=== PATIENT | male | born 1945 | race Caucasian/White ===

== ENCOUNTER 2017-04-08 14:54 | Emergency (ER) | payer OTHER, BC ==
[~2017-04-08] VITALS: Ht 180.3 cm; Wt 88.9 kg
[~2017-04-08 14:54] MED LIST: ARTHROTEC 751 TABLET PO; ASPIRIN325 MG PO; CLARITIN10 MG PO; CYCLOBENZAPRINE10 MG PO; ENDOCET 5-3251 EACH PO; LIBRAX, CLI1 CAPSULE PO; LIPITOR40 MG PO; LOPRESSOR25 MG PO; PHENOBARBITAL64.8 MG PO; PRILOSEC20 MG PO; PRINIVIL5 MG PO; SENNA-TIME S T1 EACH PO; SERTRALINE HCL50 MG PO; TYLENOL EXTRA500 MG PO; ZOLOFT100 MG PO
[2017-04-08] MEDS ORDERED: TYLENOL REGULA325 MG PO (16:29)
[2017-04-08 16:45] VITALS: BP 155/74
== END 2017-04-08 16:46 | disposition home or self-care (01) ==
LOC: EME 14:54
DX: S00.81XA Abrasion of other part of head, initial encounter (principal); S00.83XA Contusion of other part of head, initial encounter; W18.39XA Other fall on same level, initial encounter; I11.0 Hypertensive heart disease with heart failure; I50.9 Heart failure, unspecified; I10 Essential (primary) hypertension; E78.5 Hyperlipidemia, unspecified; K21.9 Gastro-esophageal reflux disease without esophagitis; Z87.891 Personal history of nicotine dependence; Z95.1 Presence of aortocoronary bypass graft; Z88.0 Allergy status to penicillin
CPT/HCPCS: 70450; 70486; 72125; 93005; 99281; 99283

== ENCOUNTER 2017-09-20 12:11 | Emergency (ER) | payer OTHER, BC ==
[~2017-09-20] VITALS: Ht 180.3 cm; Wt 98.8 kg
[~2017-09-20 12:11] MED LIST changes: +TYLENOL REGULA325 MG PO
[2017-09-20] MEDS ORDERED: KEFLEX500 MG PO (15:51)
[2017-09-20 16:04] VITALS: BP 159/76
== END 2017-09-20 16:17 | disposition home or self-care (01) ==
LOC: EME 12:11
DX: L03.115 Cellulitis of right lower limb (principal); I10 Essential (primary) hypertension; E78.5 Hyperlipidemia, unspecified; K21.9 Gastro-esophageal reflux disease without esophagitis; Z87.891 Personal history of nicotine dependence; Z95.1 Presence of aortocoronary bypass graft; Z90.49 Acquired absence of other specified parts of digestive tract; Z85.9 Personal history of malignant neoplasm, unspecified; Z87.442 Personal history of urinary calculi; Z88.2 Allergy status to sulfonamides; Z88.0 Allergy status to penicillin
CPT/HCPCS: 93971; 99281; 99284

== ENCOUNTER 2017-09-24 16:45 | Inpatient (IN) | payer OTHER, BC ==
[~2017-09-24] VITALS: Ht 180.3 cm; Wt 94.2 kg
[~2017-09-24 16:45] MED LIST changes: +KEFLEX500 MG PO
[2017-09-24 20:54] LABS: BASOPHIL COUNT 0.1 K/uL (0-0.1); EOSINOPHIL (%) 9.8 % (0-5); EOSINOPHIL COUNT 0.6 K/uL (0-0.3); HEMATOCRIT 40.1 % (38.0-50.0); HEMOGLOBIN 13.4 G/DL (12.5-16.6); IMMATURE GRANULOCYTE (%) 0.3 % (0.0-0.7); LYMPHOCYTE (%) 21.6 % (15-42); LYMPHOCYTE COUNT 1.3 K/uL (1.0-2.8); MCH 30.7 PG (29.0-34.0); MCHC 33.4 G/DL (30.0-36.0); MONOCYTE COUNT 0.6 K/uL (0-0.8); NEUTROPHIL (%) 58.3 % (45-76); NEUTROPHIL COUNT 3.6 K/uL (1.8-6.4); PLATELET COUNT 169 K/uL (156-360); RBC DIS.WIDTH-CV 12.5 % (11.8-14.6); RBC DIS.WIDTH-SD 42.3 % (39-53); RED BLOOD COUNT 4.36 M/uL (4.00-5.50); WHITE BLOOD COUNT 6.2 K/uL (4.1-10.2)
[2017-09-24 21:10] LABS: CHLORIDE 104 mEq/L (99-109); POTASSIUM 4.1 mEq/L (3.7-5.4); SODIUM 140 mEq/L (136-147)
[2017-09-24 21:12] LABS: GLUCOSE 109 mg/dL (70-99)
[2017-09-24 21:16] LABS: CREATININE 1.1 mg/dL (0.6-1.3); GFR ESTIMATE (CALCULATED) > 59 mL/min/ (58.99-99999)
[2017-09-24 21:17] LABS: UREA NITROGEN (BUN) 17 mg/dL (9-23)
[2017-09-24] MEDS ORDERED: TRAMADOL HCL50 MG PO (23:00)
[2017-09-24] MEDS ORDERED: ATORVASTATIN CA40 MG PO (23:00)
[2017-09-24] MEDS ORDERED: LOSARTAN POTAS100 MG PO (23:01)
[2017-09-24] MEDS ORDERED: MELOXICAM7.5 MG PO (23:01)
[2017-09-24] MEDS ORDERED: GABAPENTIN100 MG PO (23:02)
[2017-09-24] MEDS ORDERED: SERTRALINE HCL100 MG PO (23:03)
[2017-09-24] MEDS ORDERED: PRIMIDONE50 MG PO (23:03)
[2017-09-24] MEDS ORDERED: OMEPRAZOLE20 MG PO (23:05)
[2017-09-24] MEDS ORDERED: INDOCIN50 MG PO (23:12)
[2017-09-25 01:53] VITALS: BP 160/80
[2017-09-25 03:55] VITALS: BP 138/65
[2017-09-25 05:59] LABS: BASOPHIL (%) 0.7 % (0-1); BASOPHIL COUNT 0.1 K/uL (0-0.1); EOSINOPHIL (%) 9.5 % (0-5); EOSINOPHIL COUNT 0.7 K/uL (0-0.3); HEMOGLOBIN 12.1 G/DL (12.5-16.6); IMMATURE GRANULOCYTE (%) 0.3 % (0.0-0.7); LYMPHOCYTE (%) 18.6 % (15-42); LYMPHOCYTE COUNT 1.3 K/uL (1.0-2.8); MCH 30.7 PG (29.0-34.0); MCHC 33.6 G/DL (30.0-36.0); MCV 91.4 FL (86-99); MONOCYTE (%) 10.2 % (3-12); MONOCYTE COUNT 0.7 K/uL (0-0.8); NEUTROPHIL (%) 60.7 % (45-76); NEUTROPHIL COUNT 4.3 K/uL (1.8-6.4); PLATELET COUNT 145 K/uL (156-360); RBC DIS.WIDTH-CV 12.5 % (11.8-14.6); RBC DIS.WIDTH-SD 41.4 % (39-53); RED BLOOD COUNT 3.94 M/uL (4.00-5.50)
[2017-09-25 06:15] LABS: CHLORIDE 107 MEQ/L (99-109); CREATININE 1.1 MG/DL (0.6-1.3); GFR ESTIMATE (CALCULATED) > 59 mL/min/ (58.99-99999); GLUCOSE 118 mg/dL (70-99); POTASSIUM 4.3 MEQ/L (3.7-5.4); SODIUM 143 MEQ/L (136-147); UREA NITROGEN (BUN) 16 mg/dL (9-23)
[2017-09-25 08:37] VITALS: BP 139/69
[2017-09-25 16:00] VITALS: BP 124/71
[2017-09-25 23:57] VITALS: BP 159/73
[2017-09-26 05:41] LABS: HEMATOCRIT 39.6 % (38.0-50.0); HEMOGLOBIN 13.1 G/DL (12.5-16.6); MCH 29.9 PG (29.0-34.0); MCHC 33.1 G/DL (30.0-36.0); MCV 90.4 FL (86-99); PLATELET COUNT 156 K/uL (156-360); RBC DIS.WIDTH-CV 12.3 % (11.8-14.6); RBC DIS.WIDTH-SD 40.5 % (39-53); RED BLOOD COUNT 4.38 M/uL (4.00-5.50); WHITE BLOOD COUNT 7.3 K/uL (4.1-10.2)
[2017-09-26 07:00] VITALS: BP 161/77
[2017-09-26 10:29] LABS: HEMOGLOBIN A1c (GLYCOHEMOGLOB) 6.8 % (Below 5.7)
[2017-09-26 16:10] VITALS: BP 139/78
[2017-09-27 04:00] VITALS: BP 169/76
[2017-09-27 07:48] VITALS: BP 157/80
[2017-09-27 09:04] LABS: BASOPHIL (%) 0.3 % (0-1); EOSINOPHIL (%) 0.7 % (0-5); EOSINOPHIL COUNT 0.1 K/uL (0-0.3); HEMATOCRIT 38.7 % (38.0-50.0); HEMOGLOBIN 12.7 G/DL (12.5-16.6); IMMATURE GRANULOCYTE (%) 0.5 % (0.0-0.7); LYMPHOCYTE (%) 11.3 % (15-42); LYMPHOCYTE COUNT 1.3 K/uL (1.0-2.8); MCH 29.5 PG (29.0-34.0); MCHC 32.8 G/DL (30.0-36.0); MCV 89.8 FL (86-99); MONOCYTE COUNT 0.8 K/uL (0-0.8); NEUTROPHIL (%) 80.2 % (45-76); NEUTROPHIL COUNT 9.4 K/uL (1.8-6.4); PLATELET COUNT 178 K/uL (156-360); RBC DIS.WIDTH-CV 12.4 % (11.8-14.6); RBC DIS.WIDTH-SD 40.8 % (39-53); RED BLOOD COUNT 4.31 M/uL (4.00-5.50); WHITE BLOOD COUNT 11.8 K/uL (4.1-10.2)
[2017-09-27] MEDS ORDERED: TRIAMCINOLONE A15 GM TP (11:12)
[2017-09-27] MEDS ORDERED: PREDNISONE20 MG PO (11:12)
== END 2017-09-27 13:10 | disposition home or self-care (01) | DRG 603 ==
LOC: EME 16:45 → 5EAST 23:39 → EDOF 23:39 → ENRESERV 23:42 → 5EAST 09-25 01:14 → ENPENDDIS 09-27 → 5EAST 09-27 13:10
PROVIDERS: Emergency Medicine; Hospitalist; Internal Medicine
DX: L03.116 Cellulitis of left lower limb (principal); D72.1 Eosinophilia; L03.115 Cellulitis of right lower limb; I25.10 Atherosclerotic heart disease of native coronary artery without angina pectoris; E11.9 Type 2 diabetes mellitus without complications; I50.9 Heart failure, unspecified; I11.0 Hypertensive heart disease with heart failure; M48.02 Spinal stenosis, cervical region; K21.9 Gastro-esophageal reflux disease without esophagitis; E78.5 Hyperlipidemia, unspecified; M19.90 Unspecified osteoarthritis, unspecified site; F32.9 Major depressive disorder, single episode, unspecified; Z96.651 Presence of right artificial knee joint; Z95.1 Presence of aortocoronary bypass graft; Z87.891 Personal history of nicotine dependence; Z87.442 Personal history of urinary calculi; Z83.3 Family history of diabetes mellitus; Z82.49 Family history of ischemic heart disease and other diseases of the circulatory system; Z80.8 Family history of malignant neoplasm of other organs or systems; Z79.4 Long term (current) use of insulin
CPT/HCPCS: 71046; 80048; 80202; 82948; 83036; 83605; 83880; 85025; 85027; 87040; 87641; 93005; 99281; 99285; J0690; J1650; J1815; J3370; J7512

== ENCOUNTER 2018-02-08 01:32 | Emergency (ER) | payer OTHER, BC ==
[~2018-02-08] VITALS: Ht 177.8 cm; Wt 89.0 kg
[~2018-02-08 01:32] MED LIST changes: +ATORVASTATIN CA40 MG PO; +GABAPENTIN100 MG PO; +INDOCIN50 MG PO; +LOSARTAN POTAS100 MG PO; +MELOXICAM7.5 MG PO; +OMEPRAZOLE20 MG PO; +PREDNISONE20 MG PO; +PRIMIDONE50 MG PO; +SERTRALINE HCL100 MG PO; +TRAMADOL HCL50 MG PO; +TRIAMCINOLONE A15 GM TP
[2018-02-08 02:46] LABS: BASOPHIL (%) 0.7 % (0-1); BASOPHIL COUNT 0.1 K/uL (0-0.1); EOSINOPHIL (%) 4.5 % (0-5); EOSINOPHIL COUNT 0.3 K/uL (0-0.3); HEMATOCRIT 39.1 % (38.0-50.0); HEMOGLOBIN 13.2 G/DL (12.5-16.6); IMMATURE GRANULOCYTE (%) 0.6 % (0.0-0.7); LYMPHOCYTE (%) 15.5 % (15-42); LYMPHOCYTE COUNT 1.1 K/uL (1.0-2.8); MCH 30.9 PG (29.0-34.0); MCHC 33.8 G/DL (30.0-36.0); MCV 91.6 FL (86-99); MONOCYTE (%) 7.7 % (3-12); MONOCYTE COUNT 0.5 K/uL (0-0.8); NEUTROPHIL COUNT 4.9 K/uL (1.8-6.4); PLATELET COUNT 135 K/uL (156-360); RBC DIS.WIDTH-CV 12.7 % (11.8-14.6); RBC DIS.WIDTH-SD 42.3 % (39-53); RED BLOOD COUNT 4.27 M/uL (4.00-5.50); WHITE BLOOD COUNT 6.9 K/uL (4.1-10.2)
[2018-02-08 03:02] LABS: AMYLASE 53 IU/L (1-118); CHLORIDE 105 mEq/L (99-109); POTASSIUM 4.5 mEq/L (3.7-5.4); SODIUM 141 mEq/L (136-147)
[2018-02-08 03:04] LABS: GLUCOSE 221 mg/dL (70-99)
[2018-02-08 03:07] LABS: SERUM ETHYL ALCOHOL < 10 mg/dL
[2018-02-08 03:08] LABS: CREATININE 1.3 mg/dL (0.6-1.3); GFR ESTIMATE (CALCULATED) 58 mL/min/ (58.99-99999)
[2018-02-08 03:09] LABS: UREA NITROGEN (BUN) 23 mg/dL (9-23)
[2018-02-08 03:10] LABS: TROP-I INTERPRETATION NEGATIVE; TROPONIN-I < 0.01 ng/mL (0.0-0.30)
[2018-02-08 04:25] LABS: APPEARANCE CLEAR ((CLEAR)); BILIRUBIN NEGATIVE; BLOOD NEGATIVE; COLOR YELLOW ((YELLOW)); GLUCOSE (STRIP) NEGATIVE; KETONES NEGATIVE; LEUKOCYTES NEGATIVE; NITRITE NEGATIVE; PROTEIN (STRIP) NEGATIVE; SPECIFIC GRAVITY 1.018 (1.000-1.030); UCUL ADDED? NO; UROBILINOGEN 0.2 MG/DL (0.2-1.0)
[2018-02-08 04:42] LABS: AMPHETAMINE NEGATIVE (500 ng/mL); BARBITURATES PRESUMPTIVE POSITIVE (200 ng/mL); BENZODIAZEPINES PRESUMPTIVE POSITIVE (150 ng/mL); BUPRENORPHINE NEGATIVE (10 ng/mL); COCAINE NEGATIVE (150 ng/mL); METHADONE NEGATIVE (200 ng/mL); METHAMPHETAMINE NEGATIVE (500 ng/mL); OPIATES (MORPHINE) NEGATIVE (100 ng/mL); OXYCODONE NEGATIVE (100 ng/mL); PHENCYCLIDINE NEGATIVE (25 ng/mL); PROPOXYPHENE NEGATIVE (300 ng/mL); THC CANNABINOIDS NEGATIVE (50 ng/mL); TRICYCLIC ANTIDEPRESSANTS NEGATIVE (300 ng/mL)
[2018-02-08] MEDS ORDERED: NORCO 10/3251 TABLET PO (04:51)
[2018-02-08 04:52] LABS: LIPASE 35 U/L (1.0-51.0)
[2018-02-08 05:24] LABS: BENZODIAZEPINES, URINE SCREEN Negative (200 ng/mL)
[2018-02-08 05:31] VITALS: BP 145/82
== END 2018-02-08 05:32 | disposition home or self-care (01) ==
LOC: EME 01:32
PROVIDERS: Emergency Medicine
DX: S22.32XA Fracture of one rib, left side, initial encounter for closed fracture (principal); S60.222A Contusion of left hand, initial encounter; S01.511A Laceration without foreign body of lip, initial encounter; S00.31XA Abrasion of nose, initial encounter; S80.211A Abrasion, right knee, initial encounter; S51.011A Laceration without foreign body of right elbow, initial encounter; S61.217A Laceration without foreign body of left little finger without damage to nail, initial encounter; S62.391A Other fracture of second metacarpal bone, left hand, initial encounter for closed fracture; G62.9 Polyneuropathy, unspecified; W01.0XXA Fall on same level from slipping, tripping and stumbling without subsequent striking against object, initial encounter; Y92.488 Other paved roadways as the place of occurrence of the external cause; M85.80 Other specified disorders of bone density and structure, unspecified site; N40.0 Benign prostatic hyperplasia without lower urinary tract symptoms; I11.0 Hypertensive heart disease with heart failure; K57.30 Diverticulosis of large intestine without perforation or abscess without bleeding; I50.9 Heart failure, unspecified; E78.5 Hyperlipidemia, unspecified; I25.10 Atherosclerotic heart disease of native coronary artery without angina pectoris; Z95.1 Presence of aortocoronary bypass graft; Z79.82 Long term (current) use of aspirin; Z88.0 Allergy status to penicillin; Z88.2 Allergy status to sulfonamides; Z90.49 Acquired absence of other specified parts of digestive tract; Z87.891 Personal history of nicotine dependence
CPT/HCPCS: 70450; 71250; 72125; 73130; 74176; 80048; 81003; 82150; 83690; 84484; 84999; 85025; 86850; 86900; 86901; 99281; 99285; G0480; J7040